=== PATIENT | female | born 1970 | race Asian ===

== ENCOUNTER 2016-08-03 09:07 | Emergency (ER) | payer OTHER ==
[~2016-08-03] VITALS: Ht 147.3 cm; Wt 47.6 kg
--- NOTE | 2016-08-03 09:13 | ED INFLUENZA/URI COMPLAINT ---
History of Present Illness General Chief Complaint: General Adult Stated Complaint: COUGH AND CHEST PAIN SINCE LAST NIGHT Source: patient Exam Limitations: no limitations Vital Signs & Intake/Output Vital Signs & Intake/Output Vital Signs Date Time Temp Pulse Resp B/P Pulse O2 O2 Flow FiO2 Ox Delivery Rate 08/03 1346 98.0 70 16 132/74 98 Room Air 08/03 1201 97.1 71 18 127/82 100 Room Air 08/03 0955 98 Room Air Room Air 08/03 0916 99.8 91 20 150/86 99 Room Air Allergies Coded Allergies: No Known Allergies (08/03/16) Reconcile Medications No Known Home Medications Triage Nurses Notes Reviewed? yes HPI: 45 yo previously healthy F presenting with cough, chest pain. Cough for the last 2 weeks, nonproductive, intermittent, occurring 1-2 times an hour. Denies since he fevers, chills, palpitations, shortness of breath, sore throat or URI symptoms, extremity swelling or pain, exhausts estrogens, recent prolonged immobility or hospitalization.. Intermittent chest pain starting last night, left chest radiating into the right chest, sharp, lasting seconds at a time, occurs only with coughing. Associated left arm heaviness, denies headaches, dizziness, paresthesias or weakness. Patient has history of borderline elevated cholesterol, no history of hypertension diabetes, never smoker, no family history of early coronary artery disease or [place]. Patient states that she presented emergency department because she is concerned that the chest pain may be cardiac in origin. (SRINIVAS SIMMONS MD) Past History Travel History Traveled to [place] past 21 day No Medical History Any Pertinent Medical History? none Surgical History Surgical History: none Family History Hx Contributory? No (SRINIVAS SIMMONS MD) Review of Systems Review of Systems Constitutional: Reports: no symptoms. EENTM: Reports: no symptoms. Respiratory: Reports: cough. Denies: short of breath. Cardiovascular: Reports: chest pain. Denies: edema, orthopena, palpitations, peripheral edema. GI: Reports: no symptoms. Genitourinary: Reports: no symptoms. Musculoskeletal: Reports: no symptoms. Skin: Reports: no symptoms. Neurological/Psychological: Reports: no symptoms. Hematologic/Endocrine: Reports: no symptoms. Immunologic/Allergic: Reports: no symptoms. All Other Systems: Reviewed and Negative (SRINIVAS SIMMONS MD) Physical Exam Physical Exam General Appearance: well developed/nourished, no apparent distress Head: atraumatic Eyes: Bilateral: normal appearance. Ears, Nose, Throat: normal ENT inspection, moist mucous membrane, pharynx normal Neck: normal inspection, supple Respiratory: normal breath sounds, no respiratory distress, lungs clear Cardiovascular: regular rate/rhythm, normal peripheral pulses Core Measures Severe Sepsis Present: No Septic Shock Present: No (SRINIVAS SIMMONS MD) Progress Differential Diagnosis: influenza, pneumonia, ACS, Bronchitis Plan of Care: Orders Procedure Date/time Status TROPONIN LEVEL 08/03 1240 Active TROPONIN LEVEL 08/03 1239 Complete TROPONIN LEVEL 08/03 0845 Complete CBC WITHOUT DIFFERENTIAL 08/03 944 Complete BASIC METABOLIC PANEL 08/03 944 Complete EKG 08/03 0812 Active Laboratory Tests 08/03/16 1240: Troponin I < 0.01 08/03/16 0950: Anion Gap 11, Estimated GFR > 60, BUN/Creatinine Ratio 21.3, Glucose 101 H, Calcium 9.2, Troponin I < 0.01, CBC w Diff NO MAN DIFF REQ, RBC 4.36, MCV 89.8, MCH 29.6, RDW 12.2, MPV 9.0, Gran % 69.5, Lymphocytes % 19.1 L, Monocytes % 9.3 , Eosinophils % 1.6, Basophils % 0.5, Absolute Granulocytes 4.5, Absolute Lymphocytes 1.2, Absolute Monocytes 0.6, Absolute Eosinophils 0.1, Absolute Basophils 0, PUBS MCHC 33.0 Physician MDM: 45 year-old previously healthy female presenting with cough and chest pain. VSS, pulmonary exam as above. DDx: Viral URI, bronchitis, PNA, PTX, less likely ACS or PE. EKG sinus rhythm, nonischemic. Delta troponins by 3 hours negative x2. CBC unremarkable, no leukocytosis. BMP unremarkable. Chest x-ray without focal consolidation are air space disease. Symptomatic control of URI symptoms discussed. Codeine containing preparation for cough suppressant. Low yield of antibiotic treatment discussed with patient , will follow up with ED or PMD for fevers or worsening symptoms. Cardiac workup in ED discussed with patient, reassured. Discharged with return to care precautions. Plan of care was discussed with patient who expressed agreement and understanding. D/W Dr. Cr. (SRINIVAS SIMMONS MD) Initial ED EKG: NSR (IRIS WAGNER,SRINIVAS) Departure Departure Disposition: HOME OR SELF CARE Condition: Stable Clinical Impression Primary Impression: Cough Additional Instructions: Take Tylenol or Profen as needed for chest pain. Follow-up with your primary care doctor in the next 2-3 days. Return to the ED for any new, worsening, or concerning symptoms. Departure Forms: Customer Survey General Discharge Information Prescriptions: Current Visit Scripts No Known Home Medications (IRIS WAGNER,SRINIVAS) PA/[employer] SUPERVISOR Co-Sign Statement Statement: ED Attending supervision documentation- [] I saw and evaluated the patient. I have also reviewed all the pertinent lab results and diagnostic results. I agree with the findings and the plan of care as documented in the PA's/[employer] SUPERVIS[employer]'s documentation. [] I have reviewed the ED Record and agree with the PA's/[employer] SUPERVISOR's documentation. [] Additions or exceptions (if any) to the PAs/[employer] SUPERVISOR's note and plan are summarized below: [] Resident Co-Sign Statement Statement: ED Attending supervision documentation- [X] I saw and evaluated the patient. I have also reviewed all the pertinent lab results and diagnostic results. I agree with the findings and the plan of care as documented in the Resident's documentation. [X] I have reviewed the ED Record and agree with the Resident's documentation. [] Additions or exceptions (if any) to the Resident's note and plan are summarized below: [] (CARSON WAGNER,EUSEBIO Davis)
--- NOTE | 2016-08-03 10:25 | RADIOLOGY REPORT ---
EXAMINATION: XR CHEST CLINICAL INFORMATION: Cough. Chest pain. COMPARISON: None TECHNIQUE: 2 views of the chest were obtained. FINDINGS: There is central bronchial cuffing consistent with inflammatory or reactive airways disease. There is no focal consolidation. The pleural spaces are clear. The heart and mediastinal structures are normal. No bony abnormality is demonstrated. IMPRESSION: Central bronchial cuffing consistent with airways disease. No focal consolidation.
[2016-08-03 10:26] LABS: ABSOLUTE BASOPHIL COUNT 0 /CUMM (0.0-0.2); ABSOLUTE EOSINOPHIL COUNT 0.1 /CUMM (0.0-0.7); ABSOLUTE GRANULOCYTE CT 4.5 /CUMM (1.4-6.5); ABSOLUTE LYMPH COUNT 1.2 /CUMM (1.2-3.4); ABSOLUTE MONOCYTE COUNT 0.6 /CUMM (0.10-0.60); BASOPHIL % 0.5 % (0.0-2.0); EOSINOPHIL % 1.6 % (0-5); GRANULOCYTE % 69.5 % (42.2-75.2); HEMATOCRIT 39.2 % (37-47); MEAN CORPUSCULAR HGB 29.6 PG (27.0-31.0); MEAN CORPUSCULAR VOLUME 89.8 FL (81.0-99.0); PLATELET COUNT 227 /CUMM (130-400); RBC DISTRIBUTION WIDTH 12.2 % (11.5-14.5); RED BLOOD CELL CT 4.36 /CUMM (4.20-5.40); WHITE BLOOD CELL COUNT 6.4 /CUMM (4.8-10.8)
[2016-08-03 13:46] VITALS: BP 132/74
== END 2016-08-03 13:49 ==
LOC: ERH 09:07
PROVIDERS: Student in an Organized Health Care Education/Training Program
DX: R05 Cough (principal); R07.9 Chest pain, unspecified